=== PATIENT | male | born 1980 | race Caucasian/White ===

== ENCOUNTER → 2024-10-29 | Outpatient (CLI) | payer OTHER, MEDICAID, SELFPAY ==
--- NOTE | 2024-10-29 10:30 | XR_ITS ---
Examination: Testicular sonography complete TECHNIQUE: Grayscale sonographic images testes, assessment arterial inflow venous outflow Doppler spectral analysis carful analysis Exam date and time: October 29, 2024 1142 hours INDICATIONS: Right testicular pain beginning 5 days ago hematuria laboratory examination one week ago. FINDINGS: Right testis 4.8 cm epididymis 12 mm Arterial flow to the testicle. No testicular mass 5 mm epididymal cyst Left testis 4.2 cm epididymis 12 mm Arterial flow testicle. No testicular mass Minimal bilateral hydroceles IMPRESSION: No testicular torsion or testicular mass Small benign right epididymal cyst 5 x 4 x 5 mm
== END | disposition home or self-care (01) ==
PROVIDERS: PCP Physician Assistant; Referring Provider Physician Assistant; Visit Provider Physician Assistant
DX: N50.3 Cyst of epididymis (principal)
CPT/HCPCS: 76870